=== PATIENT | male | born 1955 | race Caucasian/White ===

== ENCOUNTER → 2016-10-14 | Day surgery (SDC) | payer OTHER ==
[~2016-10-14] MED LIST: BUPIVACAINE HCL PF 0.75% 30 ML VIAL ONE; EPINEPHrine HCL (1:1000) 30 MG/30 ML VIAL ONE; LACTATED RINGER'S 1000 ML INJ 1,000 ML ONE; LIDOCAINE 1.5%/EPINEPHrine 1:200,000 PF SOLN 30 ML AMP ONE; MIDAZOLAM HCL 5 MG/ML VIAL (1 ML) ONE; ONDANSETRON HCL 4 MG/2 ML VIAL IV PUSH ONE; PROPOFOL 200 MG/20 ML AMP IV ONE; ceFAZolin 2 GM PREMIX 50 ML ONE
--- NOTE | 2016-10-15 09:38 | MP ---
cc: DINA ZHU DATE OF SURGERY: 10/14/2016 PREOPERATIVE DIAGNOSIS 1. Left shoulder rotator cuff tendon tear. 2. Left shoulder impingement syndrome. POSTOPERATIVE DIAGNOSES 1. Left shoulder rotator cuff tendon tear. 2. Left shoulder impingement syndrome. PROCEDURE 1. Left shoulder arthroscopic rotator cuff repair. 2. Left shoulder arthroscopic subacromial decompression. SURGEON Dr. Dina Zhu DAIRY CLERK EMMA Fuentes ANESTHESIA General with interscalene block. ESTIMATED BLOOD LOSS Less than 10 cc. COMPLICATIONS None. IMPLANTS USED Arthrex. JUSTIFICATION This patient is a 60-year male who injured his left shoulder. He has had persistence of the pain and weakness in regards to his condition and failure of operative conservative treatments. His clinical exam as well as MRI confirmed the above-named findings. The patient was counseled as to the risks, benefits and alternatives to the above-named proposed surgical procedure. He did wish to proceed with surgery. PROCEDURE IN DETAIL Written consent was obtained. The patient was identified by name, taken to the or and placed supine on the operating table. General anesthesia was administered as well as 2 grams of IV Ancef. He did receive a preoperative interscalene block. The patient was carefully turned to a right lateral decubitus position. A lateral arm roll was placed. All bony prominences and pressure points were well-padded. The patient's neck position was carefully monitored and kept neutral. An arthroscopic arm lópez was gently applied to the left upper extremity with 10 pounds of traction placed. The left shoulder was prepped and draped using isopropyl alcohol, Hibiclens solution and DuraPrep solution. A standard posterior and anterior glenohumeral arthroscopic portal was established. The glenohumeral joint revealed minimal labral tearing. No significant chondromalacia was noted. The biceps origin was intact. Attention was turned to the subacromial space. There was evidence of severe impingement bursitis. An arthroscopic shaver was introduced from the lateral portal. A subacromial decompression was performed. The shaver was used to perform a bursectomy, the arthroscopic bur was used to perform an acromioplasty, and the cautery device was used to release the coracoacromial ligament. There was evidence of a full-thickness rotator cuff tear involving the junction of the supraspinatus and infraspinatus tendon. An arthroscopic bur was used to decorticate the posterior aspect of the greater tuberosity in preparation for rotator cuff tendon repair. An Arthrex Scorpion device was used to shuttle #2 FiberTape sutures through the torn tendon in a horizontal mattress pattern. A #2 FiberLink suture was also placed. The sutures were placed through the eyelet of an Arthrex 4.75 mm SwiveLock anchor. The sutures were tensioned. The anchor was inserted in the greater tuberosity for rotator cuff tendon repair. The tear was probed and noted good stability and fixation after insertion of the anchor. At the conclusion of the surgical procedure the arthroscopic portals were closed with 3-0 Prolene suture. Sterile dressing was applied. The patient was placed in a sling and swathe immobilizer. He tolerated the procedure with no intraoperative complication noted. Checo Hobbs, physician senior court office assistant certified, was present during the entire procedure to include patient positioning and the procedure itself. The medical necessity of the physician senior court office assistant was indicated in this case due to the complexity of the procedure. He assisted with manipulation of the arm and also manipulation of the camera. He assisted with shuttling of sutures and also implantation of the suture anchor for purposes of rotator cuff tendon repair. MD JUAN Garcia/WILTON /10:25 AM /9:20 AM
== END | disposition home or self-care (01) ==
LOC: ESDC 06:46
PROVIDERS: ATTEND Orthopaedic Surgery Sports Medicine
DX: M75.122 Complete rotator cuff tear or rupture of left shoulder, not specified as traumatic (principal); M75.42 Impingement syndrome of left shoulder
CPT/HCPCS: 01630; 01991; 29826; 29827; 64417; C1713; J0171; J0690; J2250; J2405; J7120